=== PATIENT | male | born 1970 | race Two or more races ===

== ENCOUNTER 2025-02-25 09:23 | Emergency (ER) | payer MEDICAID, OTHER ==
[~2025-02-25] VITALS: Ht 182.9 cm; Wt 97.5 kg
[2025-02-25 09:28] VITALS: BP 145/99; PULSE 87; RESP 18; TEMP 98.6; O2SAT 97
[2025-02-25] MEDS: HYDROcodone-ACET 10/325MG TAB PO ONE (10:10)
--- NOTE | 2025-02-25 10:14 | ED.PDOC ---
HPI Comments This is a 54 year-old male with a PMHx DM, HTN, CVA, who presents to the ED with a chief complaint of open wound with fractures of digits 1-4 to the R hand. 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 Patient has no further complaints at this time and otherwise denies further symptoms of dizziness, weakness, fever, chills, N/V/D. Chief Complaint: Upper Extremity Time Seen by MD: 10:05 Reviewed Notes: Medications, Allergies Allergies: Coded Allergies: NO KNOWN ALLERGIES (Unverified , 02/25/25) Information Source: Patient Mode of Arrival: Ambulatory Severity: Moderate Complexity: Complex Timing: Minutes Laceration Location: Hand, Digit #1, Digit #2, Digit #3, Digit #4 Mechanism: Other (concrete revolver ) Laceration Length (cm): 5 Associated Signs and Symptoms: Other (R Hand Injury ) Past Medical History PAST MEDICAL HISTORY: CVA, DM, HTN Surgical History: Denies all surgeries Family History Family History: Reviewed,noncontributory to illness, No family hx of Cancer, No family hx of DM, No family hx of Heart talha, No family hx of HTN, No family hx ofKidney talha, No family hx of Liver talha, No family hx of Lung talha, No family hx of Stroke Social History Smoker: Non-Smoker Alcohol: Denies ETOH Use Drugs: Denies Drug Use Lives In: Home Constitutional: denies: chills, diaphoresis, fatigue, fever, malaise, sweats, weakness, others EENTM: denies: blurred vision, double vision, ear bleeding, ear discharge, ear drainage, ear pain, ear ringing, eye pain, eye redness, hearing loss, mouth pain, mouth swelling, nasal discharge, nose bleeding, nose congestion, nose pain, photophobia, tearing, throat pain, throat swelling, voice changes, others Respiratory: denies: cough, hemoptysis, orthopnea, SOB at rest, shortness of breath, SOB with excertion, stridor, wheezing, others Cardiovascular: denies: chest pain, dizzy spells, diaphoresis, Dyspnea on exertion, edema, irregular heart beat, left arm pain, lightheadedness, palpitations, PND, syncope, others Gastrointestinal: denies: abdomen distended, abdominal pain, blood streaked bowels, constipated, diarrhea, dysphagia, difficulty swallowing, hematemesis, melena, nausea, poor appetite, poor fluid intake, rectal bleeding, rectal pain, vomiting, others Genitourinary: denies: burning, dysuria, flank pain, frequency, hematuria, incontinence, penile discharge, penile sore, pain, testicle pain, testicle swelling, urgency, others Neurological: denies: dizziness, fainting, headache, left sided numbness, left sided weakness, numbness, paresthesia, pre-existing deficit, right sided numbness, right sided weakness, seizure, speech problems, tingling, tremors, weakness, others Musculoskeletal: denies: back pain, gout, joint pain, joint swelling, muscle pa in, muscle stiffness, neck pain, others Integumetry: reports: laceration, wounds (open ); denies: bruises, change in color, change in hair/nails, dryness, lesions, lumps, rash, others Allergic/Immunocompromised: denies: Difficulty Healing, Frequent Infections, Hives, Itching, others Hematologic/Lymphatic: denies: anemia, blood clots, easy bleeding, easy bruising, swollen glands, others Endocrine: denies: excessive hunger, excessive sweating, excessive thirst, excessive urination, flushing, intolerance to cold, intolerance to heat, unexplained weight gain, unexplained weight loss, others Psychiatric: denies: anxiety, bipolar disorder, depression, hopeless, panic disorder, schizophrenia, sleepless, suicidal, others All Other Systems: Reviewed and Negative Physical Exam General Appearance: Moderate Distress HEENT: Normal ENT Inspection, Pharynx Normal, TMs Normal Neck: Full Range of Motion, Non-Tender, Normal, Normal Inspection Respiratory: Chest Non-Tender, Lungs Clear, No Accessory Muscle Use, No Respiratory Distress, Normal Breath Sounds Cardiovascular: No Edema, No JVD, No Murmur, No Gallop, Normal Peripheral Pulses, Regular Rate/Rhythm Breast Exam: Deferred Gastrointestinal: No Organomegaly, Non Tender, No Pulsatile Mass, Normal Bowel Sounds, Soft Genitalia: Deferred Pelvic: Deferred Rectal: Deferred Extremities: No calf tenderness, Normal capillary refill, Normal inspection, Normal range of motion, Non-tender, No pedal edema Musculoskeletal : Apperance: Normal Neurologic: Alert, aqua ammonia operator II-XII nml as Tested, No Motor Deficits, Normal Affect, Normal Mood, No Sensory Deficits Cerebellar Function: Normal Reflexes: Normal Skin: Wounds (Open right hand affecting the four fingers except the thumb) Peripheral Pulses: 3+ Radial (R), 3+ Radial (L) Lymphatic: No Adenopathy Was a procedure done? Was a procedure done?: No Differential diagnosis Generic Laceration: Fracture, Tendon Injury X-Ray, Labs, Meds, VS Vital Signs Date Time Temp Pulse Resp B/P (MAP) Pulse Ox O2 Delivery O2 Flow Rate FiO2 02/25/25 09:28 98.6 87 18 145/99 97 98.6 Current Medications Medications (Trade) Dose Ordered Sig/Chace Route Start Time Stop Time Status Last Admin Acetaminophen/ Hydrocodone Bitart ([place] 10/325MG Tab) 1 tab ONCE ONCE PO 02/25/25 10:15 02/25/25 10:14 DC 02/25/25 10:10 Patient alert. Status post hand injury. Vitals stable. Answering questions. Was given pain medication. On examination he does have exposure to the ligament tendons bone of the right hand. He was given [place]. The wanted to leave against medical advice to follow up at a facility that has the surgeon. Explained to the patient. Continue monitoring. Time of 1ST Reevaluation: 10:49 Reevaluation 1ST: Unchanged Patient Education/Counseling: Diagnosis, Treatment Family Education/Counseling: No Family Present Departure 1 Departure Time of Disposition: 11:29 Impression: Primary Impression: Open fracture Disposition: 30 STILL A PATIENT Condition: Good Critical Care Note Critical Care Time?: Yes (45 min-critical care time only) Stability Stability form required: No Heart Score Heart Score: Heart Score Response (Comments) Value History N/A 0 EKG N/A 0 Age N/A 0 Risk Factors N/A 0 Troponin N/A 0 Total 0 I personally scribed for FILI WHYTE MD ([email or web address]) on 02/25/25 at 10:14. Electronically submitted by Faith Wilkinson ([employer]). FILI WHYTE MD Feb 25, 2025 10:14
== END 2025-02-25 10:11 | disposition left against medical advice (07) ==
LOC: ER 09:23
DX: S62.91XA Unspecified fracture of right hand, initial encounter for closed fracture (principal); I10 Essential (primary) hypertension; Z86.73 Personal history of transient ischemic attack (TIA), and cerebral infarction without residual deficits; X58.XXXA Exposure to other specified factors, initial encounter; Y93.89 Activity, other specified; Y92.89 Other specified places as the place of occurrence of the external cause; Y99.8 Other external cause status; E11.9 Type 2 diabetes mellitus without complications